=== PATIENT | female | born 2005 | race Caucasian/White ===

== ENCOUNTER 2024-04-24 08:38 | Emergency (ER) | payer OTHER ==
[~2024-04-24] VITALS: Ht 160 cm; Wt 56.8 kg
[2024-04-24 08:53] VITALS: TEMP 100.4
[2024-04-24] MEDS ORDERED: Albuterol/Ipratropium 3 MG-0.5 MG/3 ML Neb Soln IH ONE (10:15)
[2024-04-24] MEDS ORDERED: NS 1,000 ML IV ONE (10:15)
[2024-04-24 10:24] LABS: BASO % 0.3 % (0.0-2.0); EOS # 0.1 K/mm3 (0.0-0.7); EOS % 0.8 % (0.0-4.0); GRAN # 10.9 K/mm3 (1.4-6.5); HEMATOCRIT 39.9 % (37.0-47.0); HEMOGLOBIN 13.7 g/dl (12.5-16.0); LYMPH # 0.9 K/mm3 (1.2-3.4); LYMPH % 7.1 % (20.0-51.0); MEAN CELL VOLUME 87 fl (80.0-100.0); MEAN CORPUSCULAR HEMOGLOBIN 30 pg (27-31); MEAN CORPUSCULAR HGB CONC 34 g/dl (33.0-37.0); MEAN PLATELET VOLUME 10.9 fl (7.4-10.4); MONO # 1.1 K/mm3 (0.1-0.6); MONO % 8.3 % (1.7-9.3); PLATELET COUNT 402 K/mm3 (130-400); REDCELL DISTRIBUTION WIDTH-CV 11.9 % (11.5-14.5)
[2024-04-24 10:34] LABS: ALBUMIN 3.4 g/dL (3.5-5.0); BILIRUBIN,TOTAL 0.6 mg/dL (0.2-1.2); CALCIUM 9.2 mg/dL (8.4-10.2); CREATININE, serum 0.8 mg/dL (0.57-1.11); POTASSIUM 3.5 mEq/L (3.5-4.5)
[2024-04-24] MEDS ORDERED: LEVAQUIN 5500 MG/TA1 PO (11:53)
[2024-04-24] MEDS ORDERED: PROAIR HFA0.09 MG/AC IH (11:53)
[2024-04-24 12:03] VITALS: BP 118/84; PULSE 124
== END 2024-04-24 12:03 | disposition home or self-care (01) ==
LOC: COL.ER 08:38
PROVIDERS: Personal Emergency Response Attendant
DX: J18.9 Pneumonia, unspecified organism (principal); Z88.1 Allergy status to other antibiotic agents
CPT/HCPCS: J1956; J7030